=== PATIENT | female | born 2000 | race Caucasian/White ===

== ENCOUNTER 2022-01-15 17:37 | Emergency (ER) | payer OTHER, SELFPAY ==
[2022-01-15 17:45] VITALS: BP 150/83; PULSE 97; RESP 16; TEMP 37; O2SAT 100
--- NOTE | 2022-01-15 18:07 | ED.SKABFB ---
HPI - Skin/Abscess/Foreign Bdy General Chief complaint: Skin/Abscess/Foreign Body Stated complaint: Belly Button Piercing infected Time Seen by Provider: 01/15/22 17:50 Source: patient Mode of arrival: ambulatory Limitations: no limitations History of Present Illness HPI narrative: Mily is a 21-year-old female patient presenting to the clinic today with complaints of possible bellybutton infection. She reports that this has been going off and on for the last couple weeks. She reports that she has gotten some bloody yellowish drainage from her bellybutton as well as pain and swelling. She denies any fever or chills. Related Data Home Medications Medication Instructions Recorded Confirmed norethindrone 1 mg-ethinyl 1 tablet PO DAILY 01/15/22 01/15/22 estradiol 35 mcg tablet (Alyacen) Allergies Allergy/AdvReac Type Severity Reaction Status Date / Time No Known Allergies Allergy Verified 01/15/22 17:54 Review of Systems Review of Systems: Pertinent positives per HPI. Patient denies any fever, chills, rash, headache, visual changes, dizziness, cough, runny nose, sore throat, shortness of breath, chest pain, palpitations, nausea, vomiting, diarrhea, constipation, abdominal pain, or any urinary issues. PMFSH Comments At the time of my signature, I reviewed and agree with the nursing past medical, surgical, social, and family history. There is no relevant family history pertinent to the patient complaint. Exam Narrative: General: Well-developed, well nourished, in no apparent distress Head: Normocephalic, atraumatic. Cardio: Regular rate and rhythm, s1 and s2 normal, no murmur appreciated. Resp: Clear to auscultation bilaterally, no rhonchi, rales, wheezing or rubs. Integumentary: [place], warm, and dry, intact without lesion, no rashes. Bellybutton piercing with localized redness and yellowish discharge. Mild swelling and erythema to the area of piercing, piercing removed in the clinic and piercing was placed in a sterile cup and given to the patient. Course Course Emergency Course: Portions of this record may have been created with voice recognition software. Level of Care: Express Care Visit Vital Signs Vital signs: Vital Signs Temperature 37.0 C 01/15/22 17:45 Pulse Rate 97 01/15/22 17:45 Respiratory Rate 16 01/15/22 17:45 Blood Pressure 150/83 H 01/15/22 17:45 Pulse Oximetry 100 01/15/22 17:45 Oxygen Delivery Room Air 01/15/22 17:45 Temperature 37.0 C 01/15/22 17:45 Pulse Rate 97 01/15/22 17:45 Respiratory Rate 16 01/15/22 17:45 Blood Pressure 150/83 H 01/15/22 17:45 Pulse Oximetry 100 01/15/22 17:45 Oxygen Delivery Room Air 01/15/22 17:45 Vital signs reviewed MDM - Skin/Abscess/Foreign Bdy MDM Narrative Medical decision making narrative: At the time of visit patient is resting comfortably on the exam table. Belly piercing was removed for patient and piercing was given to her in a sterile cup. I suspect that the patient has a localized superficial skin infection and mupirocin cream was prescribed for this. Supportive measures were discussed and she voiced understanding of discharge instructions. Differential Diagnosis Differential diagnosis: Likely abscess of skin or subcutaneous tissue Discharge Plan Discharge Clinical Impression: Skin infection, Infected piercing of trunk Patient Disposition: Home, Self-Care Condition: Stable Instructions: Antibiotic Form Additional Instructions: Apply mupirocin cream twice daily x7 days Tylenol/Motrin as needed for pain or fever. May cover with Band-Aid if draining Follow-up with your PCP in 3 to 5 days if symptoms persist or sooner if they worsen. Prescriptions: New mupirocin 2 % ointment 1 applic topical BID 7 Days Qty: 22 0RF No Action Alyacen (28) 1-35 mg-mcg Tablet 1 tablet PO DAILY Follow-up/Referrals: PHYSICIAN NOT ON STAFF,NONSTAFF [Primary Care Provide
== END 2022-01-15 18:12 | disposition home or self-care (01) ==
PROVIDERS: Emergency Provider Nurse Practitioner Family
DX: S31.135A Puncture wound of abdominal wall without foreign body, periumbilic region without penetration into peritoneal cavity, initial encounter (principal); L08.9 Local infection of the skin and subcutaneous tissue, unspecified
CPT/HCPCS: 99213; G0463

== ENCOUNTER 2022-07-31 09:33 | Emergency (ER) | payer OTHER, SELFPAY ==
[2022-07-31 09:41] VITALS: BP 126/70; PULSE 89; RESP 16; TEMP 36.4; O2SAT 98
--- NOTE | 2022-07-31 09:51 | ED.GENADULT ---
HPI - General Adult General Chief complaint: Upper Respiratory Infection Stated complaint: cough,throat hurts Source: patient Mode of arrival: ambulatory Limitations: no limitations History of Present Illness HPI narrative: Patient presents for evaluation of sore throat since 07/27/2022. No recent sick contacts to her knowledge. She had a fever around this time of symptom onset but that broke fairly quickly per reports. She reports a productive cough of clear sputum and fullness in her ears. She also reports nausea and one episode of vomiting related to some dizziness she experienced, which has since resolved. She denies any chills or diarrhea. She is a former smoker, with quit date 07/25/22. She has been taking some xzji-wcc-edewpve cold medication and ibuprofen for her symptoms. She has never had COVID in the past. She had strep a few months ago per her reports. No additional complaints or concerns. Related Data Allergies Allergy/AdvReac Type Severity Reaction Status Date / Time No Known Allergies Allergy Verified 07/31/22 09:45 Review of Systems Review of Systems: CONSTITUTIONAL: Reports recent fever, now resolved. Denies chills, or sweats. EYES: Denies visual changes, redness, or discharge. ENT: Reports sore throat and fullness in her ears. Denies rhinorrhea or congestion CARDIOVASCULAR: Denies chest pain, palpitations, or edema. RESPIRATORY: Denies cough or dyspnea. GASTROINTESTINAL: Reports nausea with one episode of vomiting GENITOURINARY: Denies dysuria or hematuria. SKIN: Denies rash or itching. MUSCULOSKELETAL: Denies back pain, joint pain, or myalgia. NEUROLOGIC: Reports dizziness yesterday, now resolved. Denies headache, numbness, or weakness. PSYCHIATRIC: Denies anxiety or depression. FOR[facility]LY [facility], [facility] Past Medical History Medical History (Updated 07/31/22 @ 09:59 by ELIANA Ramirez, HUGO) No pertinent past medical history Surgical History Surgical History (Updated 07/31/22 @ 09:57 by Jaiden Youngblood, ELIANA, HUGO) No pertinent past surgical history Family History Family History Mother Family history non-contributory Social History Social History (Updated 07/31/22 @ 10:04 by ELIANA Ramirez, HUGO) Smoking status: Former smoker Tobacco type: e-cigarettes/vaping Alcohol intake: current Gender identity (if verbalized by the patient): Female Spiritual care concerns: No Exam Narrative: GENERAL: Well-appearing, well-nourished, and in no acute distress. HEAD: Normocephalic, atraumatic. EYES: PERRLA and EOMI. ENT: Nares clear, no rhinorrhea or epistaxis. Mucous membranes moist. Bilateral tonsillar swelling, erythema and white exudate. Uvula is midline. Bilateral TMs pearly harrison nonbulging NECK: Supple. No adenopathy or masses. No carotid bruits or JVD CHEST: Clear to auscultation. No respiratory distress. No wheezes rales or rhonchi HEART: Regular rate and rhythm. No murmur heard. Normal peripheral pulses. ABDOMEN: Soft, nontender, nondistended, normal active bowel sounds. EXTREMITIES: Normal range of motion. No edema. SKIN: Warm, dry, no rash. NEURO: No focal deficits. Alert and oriented x3. PSYCH: Normal mood and affect. Course Course Emergency Course: This is a 22-year-old female who presented for evaluation of sore throat. Strep was positive. Will treat with amoxicillin. Increase hydration. Oiez-tqx-qzvqbyc agents for symptom management. Follow up with primary provider. Go to the ER for worsening symptoms. Patient in agreement with plan of care. Level of Care: Express Care Visit Vital Signs Vital signs: Vital Signs Temperature 36.4 C 07/31/22 09:41 Pulse Rate 89 07/31/22 09:41 Respiratory Rate 16 07/31/22 09:41 Blood Pressure 126/70 07/31/22 09:41 Pulse Oximetry 98 07/31/22 09:41 Oxygen Delivery Room Air 07/31/22 09:41 Temperature 36.4 C 07/31/22 09:41 Pulse Rate 89
== END 2022-07-31 10:01 | disposition home or self-care (01) ==
PROVIDERS: Emergency Provider Nurse Practitioner
DX: J02.0 Streptococcal pharyngitis (principal); Z87.891 Personal history of nicotine dependence
CPT/HCPCS: 87880; 99213; G0463

== ENCOUNTER 2022-08-03 09:17 | Emergency (ER) | payer OTHER, SELFPAY ==
[2022-08-03 09:30] VITALS: BP 150/97; PULSE 90; RESP 24; O2SAT 97
--- NOTE | 2022-08-03 09:43 | ED.URI ---
HPI - URI/Sore Throat General Chief Complaint: Upper Respiratory Infection Stated Complaint: Problems from Tuesday Time Seen by Provider: 08/03/22 09:58 Source: patient and RN notes reviewed Mode of arrival: ambulatory Limitations: no limitations History of Present Illness HPI Narrative: 22-year-old female presents concern for ongoing sore throat after being started on antibiotic for strep. She reports she has been taking amoxicillin for 2 days. She reports her panic attacks have been worse since she became sick, they did not change in nature since she started her antibiotic. She is not having any rash, nausea, vomiting, swollen lips, swollen tongue. She reports feeling of fast heartbeat. She reports nasal congestion, rhinorrhea, cough. MD elicited complaint: sore throat Related Data Allergies Allergy/AdvReac Type Severity Reaction Status Date / Time No Known Allergies Allergy Verified 08/03/22 09:44 Review of Systems Review of Systems: CONSTITUTIONAL: Reports malaise, chills EYES: Denies visual changes, redness, or discharge. ENT: Reports rhinorrhea, congestion, and sore throat. Denies sinus pain, otalgia CARDIOVASCULAR: Denies chest pain, palpitations, or edema. Reports fast heartbeat RESPIRATORY: Reports cough. Denies dyspnea. GASTROINTESTINAL: Denies abdominal pain, nausea, vomiting, diarrhea SKIN: Denies rash or itching. MUSCULOSKELETAL: Denies myalgia. NEUROLOGIC: Denies headache. All systems reviewed & are unremarkable except as noted in HPI and below PMFSH Past Medical History Medical History (Updated 08/03/22 @ 10:41 by Muriel Mcdonough NP) No pertinent past medical history Surgical History Surgical History (Updated 07/31/22 @ 09:57 by Jaiden Youngblood, ELIANA, ) No pertinent past surgical history Family History Family History Mother Family history non-contributory Social History Social History (Updated 07/31/22 @ 10:04 by Jaiden Youngblood, ELIANA, ) Smoking status: Former smoker Tobacco type: e-cigarettes/vaping Alcohol intake: current Gender identity (if verbalized by the patient): Female Spiritual care concerns: No Comments At time of signature, agree with nursing past medical, surgical, social and family history. There is no relevant family history pertinent to the presenting complaint Exam Narrative: GENERAL: Nontoxic-appearing and in no acute distress. HEAD: Normocephalic EYES: PERRLA, conjunctivae clear ENT: Nares clear, clear discharge. Mucous membranes moist. TM pearly harrison with sharp light reflex bilaterally; no tragal tenderness. Oropharynx erythematous without lesions. Tonsils mildly enlarged and without exudate, no drooling, mild hoarseness, no trismus, uvula midline. NECK: Supple. No lymphadenopathy CHEST: Clear to auscultation, breath sounds equal. No wheezing, rhonchi, rales, or stridor. No respiratory distress, speaks in full sentences. HEART: Regular rate and rhythm. No murmur heard. SKIN: Warm, dry, no rash. NEURO: Alert and oriented x3. PSYCH: Normal mood and affect Course Course Emergency Course: Patient is aware of diagnosis, understands and agrees to treatment plan. Anticipatory guidance given. Patient agrees to follow-up as directed and is aware of reasons to seek care at the emergency department. Portions of this record may have been created with voice recognition software Level of Care: Express Care Visit Vital Signs Vital signs: Vital Signs Pulse Rate 90 08/03/22 09:30 Respiratory Rate 24 H 08/03/22 09:30 Blood Pressure 150/97 H 08/03/22 09:30 Pulse Oximetry 97 08/03/22 09:30 Oxygen Delivery Room Air 08/03/22 09:30 Pulse Rate 90 08/03/22 09:30 Respiratory Rate 24 H 08/03/22 09:30 Blood Pressure 150/97 H 08/03/22 09:30 Pulse Oximetry 97 08/03/22 09:30 Oxygen Delivery Room Air 08/03/22 09:30 Reviewed. MDM - URI/Sore Throat MDM Narrative Medi
== END 2022-08-03 10:50 | disposition home or self-care (01) ==
PROVIDERS: Emergency Provider Nurse Practitioner
DX: J02.9 Acute pharyngitis, unspecified (principal); Z20.822 Contact with and (suspected) exposure to COVID-19; Z87.891 Personal history of nicotine dependence
CPT/HCPCS: 36416; 86308; 87426; 87804; 99213; C9803; G0463